=== PATIENT | male | born 1990 | race Two or more races ===

== ENCOUNTER 2017-01-26 05:27 | Emergency (ER) | payer SELFPAY ==
[2017-01-26 05:46] VITALS: RESP 16
[2017-01-26] MEDS ORDERED: NS 2,000 ML IV ONE (06:22)
[2017-01-26 06:51] VITALS: PULSE 102; O2SAT 99
--- NOTE | 2017-01-26 07:20 | EDPHY ---
H & P Stated Complaint: n/v Time Seen by Provider: 01/26/17 05:46 HPI/ROS: HPI The patient presents with nausea and vomiting associated with palpitations which began when he awoke from sleep about 1 hour ago. Last night, he drinks 2 alcoholic drinks and consumed about 100 mg of edible marijuana. He then went to bed, however was awoke feeling this way. He has had several episodes of nonbloody nonbilious emesis which have been constant and moderate in severity. He does not have any abdominal pain. He does not have any fever.. REVIEW OF SYSTEMS Constitutional: No fever, no chills. Eyes: No discharge. ENT: No sore throat. Cardiovascular: No chest pain, no palpitations. Respiratory: No cough, no shortness of breath. Gastrointestinal: No abdominal pain, positive for vomiting. Genitourinary: No hematuria. Musculoskeletal: No back pain. Skin: No rashes. Neurological: No headache. PMHx: Healthy Soc Hx: Visiting from [place], alcohol and marijuana use PHYSICAL General Appearance: Alert, no distress Eyes: Pupils equal and round no pallor with injection ENT, Mouth: Mucous membranes moist Respiratory: There are no retractions, lungs are clear to auscultation Cardiovascular: Tachycardic rate and regular rhythm Gastrointestinal: Abdomen is soft and non-tender, no masses, bowel sounds normal Neurological: A&O, moves all extremities Skin: Warm and dry, no rashes Musculoskeletal: Neck is supple non tender Extremities: symmetrical, full range of motion Psychiatric: Patient is oriented X 3, there is no agitation Source: Patient, EMS - Personal History Current Tetanus/Diphtheria Vaccine: Yes Current Tetanus Diphtheria and Acellular Pertussis (TDAP): Yes - Medical/Surgical History Hx Asthma: No Hx Chronic Respiratory Disease: No Hx Diabetes: No Hx Cardiac Disease: No Hx Renal Disease: No Hx Cirrhosis: No Hx Alcoholism: No Hx HIV/AIDS: No Hx Splenectomy or Spleen Trauma: No Other PMH: denies - Social History Smoking Status: Never smoked Constitutional: Initial Vital Signs Temperature (C) 36.8 C 01/26/17 05:30 Heart Rate 124 H 01/26/17 05:30 Respiratory Rate 16 01/26/17 05:30 Blood Pressure 133/85 H 01/26/17 05:30 O2 Sat (%) 96 01/26/17 05:30 O2 Delivery Mode Room Air Allergies/Adverse Reactions: No Known Allergies Allergy (Unverified 01/26/17 05:42) Home Medications: Medication Instructions Recorded NK [No Known Home Meds] 01/26/17 Medical Decision Making Differential Diagnosis: This is a healthy 26-year-old male who presents with nausea and vomiting which began about 1 hour ago associated with palpitations and general anxiety. This is in the setting of large quantity of marijuana use last night. On exam, he is tachycardic, his abdominal exam is benign. Differential diagnosis includes marijuana intoxication, alcohol intoxication, less likely bowel obstruction or gastroenteritis. In the emergency room, the patient was given IV fluids for vomiting in volume depletion, Zofran was administered for vomiting. His symptoms improved with these treatments and he was no longer tachycardic and felt well enough to go home. He was discharged and I suspect marijuana intoxication was the cause of his symptoms. - Data Points Medications Given: Discontinued Medications Sodium Chloride (Ns) 2,000 mls @ 3,000 mls/hr IV ONCE ONE Stop: 01/26/17 07:01 Last Admin: 01/26/17 06:00 Dose: 2,000 mls Departure - Departure Disposition: Home, Routine, Self-Care Clinical Impression: Tachycardia, Marijuana use Vomiting Qualifiers: Vomiting type: unspecified Vomiting Intractability: non-intractable Nausea presence: with nausea Qualified Code(s): R11.2 - Nausea with vomiting, unspecified Condition: Good Instructions: Medicinal Use of Cannabis (ED) Additional Instructions: Please make sure to drink plenty of fluids. You should return to the emergency room if your worse in any way. Referrals: RASHE[facility] NUR [Other] - As per Instructions
[2017-01-26] MEDS ORDERED: ONDANSETRON 4MG PREPACK#2 BTL TAKEHOME ONE (07:24)
[2017-01-26 08:00] VITALS: BP 113/71; TEMP 97.7
== END 2017-01-26 08:00 | disposition home or self-care (01) ==
LOC: EDBD 05:27
DX: R11.2 Nausea with vomiting, unspecified (principal); R00.0 Tachycardia, unspecified; F12.90 Cannabis use, unspecified, uncomplicated